=== PATIENT | female | born 1970 | race Caucasian/White ===

== ENCOUNTER → 2022-01-11 | Outpatient (CLI) | payer MEDICAID, SELFPAY ==
--- NOTE | 2022-01-11 14:39 | NEURO ---
NCS and/or EMG Patient Report Ordering Doctor: Gerson Barragan DATE OF SERVICE: 01/11/22 Indication: Several months of numbness on the lateral aspect of the left leg. 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 Chronic low back pain status post spinal stimulator. Findings: Nerve conduction studies were performed in the right and left lower extremity. The right peroneal motor study recording the extensor digitorum brevis showed a normal amplitude, normal distal latency and normal conduction velocity. No conduction block or focal slowing was present across the fibular neck. The right tibial motor study recording the abductor hallucis brevis showed a normal amplitude, normal distal latency and normal conduction velocity. The right sural sensory response showed a normal amplitude and borderline conduction velocity. The right superficial peroneal sensory response was absent. The left peroneal motor study recording the extensor digitorum brevis showed a normal amplitude, normal distal latency and normal conduction velocity. No conduction block or focal slowing was present across the fibular neck. The left tibial motor study recording the abductor hallucis brevis showed a normal amplitude, normal distal latency and normal conduction velocity. The left sural sensory response showed a normal amplitude and mildly slowed conduction velocity. The left superficial peroneal sensory response showed a normal amplitude and conduction velocity. Needle EMG of the right lower extremity and lumbosacral paraspinal muscles was performed. No denervation was present in any muscle. Motor units in the right extensor hallucis longus were large amplitude, long duration with reduced recruitment. All other motor unit morphology, activation, and recruitment patterns were normal. Needle EMG of the left lower extremity and lumbosacral paraspinal muscles was performed. No denervation was present in any muscle. All motor unit morphology, activation, and recruitment patterns were normal. Impression: This is an abnormal study. 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 A more proximal, incomplete lesion (e.g. sciatic, plexus, L5 radiculopathy affecting the dorsal root ganglion) cannot be entirely excluded by this study. A neuromuscular ultrasound of the sciatic and peroneal nerves could be considered for further localization. In addition, there is no definite electrophysiologic evidence of peripheral neuropathy or radiculopathy in the left lower extremity. Please note: the electrodiagnosis of radiculopathy is made on the basis of excluding peripheral nerve lesions on nerve conduction studies and the needle EMG demonstrating denervation and/or reinnervation in the distribution of one or more nerve roots (i.e., acute and/or chronic axonal loss). Thus, electrodiagnostic studies are insensitive in detecting radiculopathy in the absence of axonal loss (e.g., in the setting of compression resulting in intermittent ischemia or mechanical deformation; or demyelination without axonal loss). Thus, clinical correlation is required in the interpretation of this negative electrodiagnostic study for radiculopathy. Los Gonzáles D.O. Multi Select Codes Neurology Neurology Interp Codes: 04624-08 Musc test done w/n test comp (interp) (Qty:2) and 73970-10 Nr cndj test 7-8 studies (interp)
== END | disposition home or self-care (01) ==
PROVIDERS: PCP Pediatrics
DX: M79.672 Pain in left foot (principal); M79.671 Pain in right foot; M54.10 Radiculopathy, site unspecified
CPT/HCPCS: 95886; 95910

== ENCOUNTER → 2022-02-13 | Outpatient (CLI) | payer MEDICAID, SELFPAY ==
--- NOTE | 2022-02-13 07:35 | MRI_ITS ---
HISTORY: Low back pain with pain radiating down both legs right greater than left x 20 years, history of neurostimulator placement. TECHNIQUE: Multiplanar and multisequence MR images of the lumbar spine were obtained without intravenous contrast. 147 images. COMPARISON: XR 01/28/2022. FINDINGS: VERTEBRAE: For the purposes of this report, there is a transitional lumbosacral vertebra with the lowest intervertebral disc space designated as L5-S1. Vertebral body heights maintained. Mild degenerative bone marrow endplate changes at L4-5 and L5-S1. ALIGNMENT: No significant anterior or posterior subluxation. CONUS: Normal morphology and position of the conus medullaris at T12. INTERVERTEBRAL DISCS: T12-L1: No significant posterior disc protrusion, central canal stenosis, or foraminal narrowing based on the sagittal images. L1-2: Minimal disc bulge and facet arthropathy resulting in mild left foraminal narrowing. No significant central canal stenosis. L2-3: Mild disc bulge with facet arthropathy superimposed on developmentally short pedicles resulting in moderate central canal stenosis and mild bilateral foraminal narrowing. L3-4: Mild disc bulge with facet arthropathy superimposed on developmentally short pedicles and prominent dorsal epidural fat resulting in severe central canal stenosis, mild left, and moderate right foraminal narrowing. L4-5: Mild posterior disc bulge osteophyte complex with facet arthropathy superimposed on a developmentally narrow spinal canal resulting in moderate central canal stenosis and bilateral foraminal narrowing. L5-S1: Tapering of the thecal sac and developmentally narrow spinal canal. No significant posterior disc protrusion or foraminal narrowing. Facet arthropathy. SOFT TISSUES: Artifact from thoracic spinal stimulator. Mild posterior subcutaneous edema. MRI/Spine Lumbar (Routine) IMPRESSION: Multilevel degenerative disc disease superimposed on a developmentally narrow lumbar spinal canal resulting in spinal canal stenosis and foraminal narrowing as above. Electronically Signed: Chanel Rosa MD at 13:07 EST ,
== END | disposition home or self-care (01) ==
LOC: MRI 07:24
PROVIDERS: PCP Pediatrics; Referring Provider Orthopaedic Surgery; Visit Provider Orthopaedic Surgery
DX: M51.36 Other intervertebral disc degeneration, lumbar region (principal)
CPT/HCPCS: 72148